=== PATIENT | male | born 1990 | race Caucasian/White ===

== ENCOUNTER 2017-01-31 00:36 | Observation (INO) ==
[2017-01-31 01:18] LABS: MANUAL DIFF NEEDED? NO; URINE CULTURE NEEDED? NO; URINE MICRO REVIEW NEEDED? NO; URINE SOURCE CLEAN CATCH
[2017-01-31 01:22] LABS: BASO% 0.2 % (0.0-0.8); HEMATOCRIT 43.4 % (42.0-52.0); HEMOGLOBIN 15.7 g/dL (14.0-18.0); IMM GRAN# 0.02 X1000 (0.0-0.04); IMM GRAN% 0.2 % (0.0-0.5); LYMPH# 1.64 X1000 (1.2-3.4); LYMPH% 12.8 % (20.5-51.1); MCH 32.6 PG (27-31); MCHC 36.2 g/dL (33-37); MCV 90.2 FL (81-99); MONO# 0.28 X1000 (0.11-0.59); MONO% 2.2 % (1.7-9.3); MPV 10.5 FL (7.4-10.4); NEUT% 84.6 % (42.2-75.2); PLT 303 X1000 (130-400); RBC 4.81 XMIL (4.7-6.1)
[2017-01-31] MEDS ORDERED: PHENERGAN IM ONE (01:27)
[2017-01-31 01:46] LABS: AGAP 21; ALBUMIN 5.4 g/dL (3.5-5.0); ALKALINE PHOSPHATASE 75 U/L (32-122); AMYLASE 32 U/L (20-200); BUN 13 mg/dL (8-22); CALCIUM 10.2 mg/dL (8.8-10.2); CHLORIDE 103 mmol/L (98-107); COSMO 286; GOT 14 U/L (10-34); GPT 12 U/L (10-44); LIPASE 12 U/L (13-60); POTASSIUM 3.7 mmol/L (3.5-5.1); SODIUM 143 mmol/L (136-145); TCO2 19 mmol/L (25-35); TOTAL BILIRUBIN 1.74 mg/dL (0.20-1.00); TOTAL PROTEIN 8.3 g/dL (6.3-8.3)
[2017-01-31 01:48] LABS: URINE RBC <10 /HPF (<10); URINE WBC <10 /HPF (<10)
[2017-01-31] MEDS ORDERED: SODIUM CHLORIDE 0.9% INJ ONE ×2 (01:48→04:02)
[2017-01-31] MEDS ORDERED: PHENERGAN IV ONE (01:48)
[2017-01-31 01:49] LABS: BILIRUBIN URINE NEGATIVE (NEGATIVE); BLOOD URINE NEGATIVE (NEGATIVE); COLOR YELLOW; GLUCOSE URINE NEGATIVE (NEGATIVE); LEUKOCYTES URINE NEGATIVE (NEGATIVE); NITRITE URINE NEGATIVE (NEGATIVE); PROTEIN URINE 100 mg/dL (NEGATIVE); SP GRAVITY URINE 1.025; TURBIDITY URINE CLEAR (CLEAR); UR EPITHELIAL CELLS <10 /HPF (<10); URINE BACTERIA NEGATIVE /HPF; UROBILINOGEN URINE 2 mg/dL (NORMAL)
--- NOTE | 2017-01-31 01:49 | PROVIDER DOCUMENTATION ---
This chart was entered by Alan Pinedo Scribe, acting as scribe for Swapnil Michael PA. HPI-Abdominal Pain/GI Problem - General Source: patient - History of Present Illness-ABD Nature of Presenting Problems: Pt is a 26 yom who presents to ER with CC of hematemesis and N/D that started yesterday am. Pt states that he was vomiting every 5 minutes starting when he woke up, and has had 2 episodes of loose/watery diarrhea. Pt denies any sick contacts or recent travel. Pt reports that he was not going to come to ER originally until his noticed hematemesis in the garbage can that pt was vomiting in to. Abdominal Pain Onset Location: reports: periumbilical Pain Radiation: reports: no radiation Quality of Pain: reports: aching, cramping Severity in ED: reports: moderate Onset/Duration: reports: this morning (01/30/2017 am) Timing: reports: still present Associated Symptoms: reports: diaphoresis, diarrhea, fatigue, fever/chills, muscle aches, nausea, shortness of breath (Pt reports difficulty breathing after vomiting), vomiting, weakness, trouble walking. denies: anxiety, arm pain , back/neck pain, chest pain, constipation, dizziness, EENT symptoms, genitourinary problems, headaches, heartburn, joint pain Last BM: last night Dark Stools Present?: reports: none noticed Rectal Bleeding: reports: none Rectal Pain: reports: none Emesis Description: reports: blood-streaked <Swapnil Michael - Last Filed: 01/31/17 10:12> <Pro Stock - Last Filed: 02/01/17 01:43> - General Chief Complaint: Vomiting Stated Complaint: throwing up blood Time Seen by Provider: 01/31/17 01:15 Allergies/Adverse Reactions: Patient Allergies Allergy/AdvReac Type Severity Reaction Status Date / Time No Known Allergies Allergy Verified 01/31/17 01:02 Home Medications: Home Medication List Medication Instructions Recorded Confirmed Last Taken Type Pantoprazole [Protonix] 40 mg PO BID #60 tablet 01/31/17 Unknown Rx Review of Systems - Adult - REVIEW OF SYSTEMS - ADULT Constitutional: reports: chills, fatique. denies: fever, night sweats, weight gain, weight loss Eyes: reports: no symptoms reported Ears, Nose, Mouth & Throat: reports: no symptoms reported Cardiovascular: reports: no symptoms reported Respiratory: reports: dyspnea on exertion (after vomiting). denies: chronic cough, cough, excessive sputum production, hemoptysis, pleurisy, shortness of breath, wheezing Gastrointestinal: reports: abdominal pain, hematemesis, diarrhea, difficulty swallowing (unable to retain solids/liquids), nausea, poor appetite, vomiting. denies: constipation, frequent heartburn, rectal bleeding Genitourinary: denies: dysuria, discharge, flank pain, frequent UTI's, hematuria Musculoskeletal: reports: no symptoms reported Integumentary: reports: no symptoms reported Neurological: reports: no symptoms reported Psychiatric: reports: no symptoms reported Endocrine: reports: no symptoms reported Hematologic/Lymphatic: reports: no symptoms reported Allergic/Immunologic: reports: no symptoms reported All Other Systems: Reviewed and Negative <Swapnil Michael - Last Filed: 01/31/17 10:12> - REVIEW OF SYSTEMS - ADULT Constitutional: reports: see HPI <Pro Stock - Last Filed: 02/01/17 01:43> Past History - Adult - PAST MEDICAL HISTORY-ADULT Review of Records: reports: Old Records Reviewed, Nursing Assessment Review, Medications Reviewed, Social history reviewed & non-contributory. - IMMUNIZATION STATUS Childhood Immunizations: See Nurse Assessment Flu Vaccine: See Nurse Assessment <Swapnil Michael - Last Filed: 01/31/17 10:12> - PAST MEDICAL HISTORY-ADULT Review of Records: reports: Old Records Reviewed, Nursing Assessment Review, Medications Reviewed, Social history reviewed & non-contributory. Major Childhood Illnesses: reports: denies history <Pro Sotck - Last Filed: 02/01/17 01:43> Physical Exam-General - PHYSICAL EXAM-ADULT Initial Vital Signs Reviewed: Yes - CONSTITUTIONAL General Appearance: appears well, alert, mild distress, lethargic - EYES Eyes: PERRL/EOMI, pink conjunctivae - HEAD, EARS, NOSE, MOUTH & THROAT HENMT: normocephalic/atraumatic, moist mucous membranes, normal ENT inspection, TMs normal, pharynx normal. negative: pharyngeal erythema, tonsillar exudate, TM abnormal - NECK Neck: non-tender, full range of motion, supple, normal inspection. negative: C- spine tenderness, limited range of motion, lymphadenopathy - RESPIRATORY Respiratory: chest non-tender, lungs clear, normal breath sounds, no pleuratic chest pain, no respiratory distress, no accessory muscle use. negative: respiratory distress, decreased breath sounds, accessory muscle use, wheezing - CARDIOVASCULAR Cardiovascular: normal peripheral pulses, regular rate, rhythm. negative: bradycardia, tachycardia, irregularly irregular - GASTROINTESTINAL (ABDOMEN) Abdominal Exam: normal bowel sounds, no organomegaly, no pulsatile mass, guarding, tenderness (RU/LQ). negative: non tender, soft, McBurney's point tenderness, Kumar's sign - MUSCULOSKELETAL Back Exam: normal inspection, no CVA tenderness, no vertebral tenderness. negative: CVA tenderness, vertebral tenderness Extremity: normal range of motion, non-tender, normal gait, normal inspection, no pedal edema, no calf tenderness, normal capillary refill. negative: deformity, erythema, inflammation, swelling, tenderness - SKIN Integumentary: normal color, normal turgor, warm/dry. negative: abrasion(s), diaphoresis, ecchymosis, erythema, laceration(s), swelling, tenderness, warm - NEUROLOGIC Neurologic: drafting engineer II-XII nml as tested, grossly normal, no motor/sensory deficits . negative: facial droop, focal weakness, motor weakness, sensory deficit - PSYCHIATRIC Psych/Mental Status: normal thought content, normal thought process, oriented x 3, depressed affect. negative: normal mood/affect <Swapnil Michael - Last Filed: 01/31/17 10:12> - PHYSICAL EXAM-ADULT Initial Vital Signs Reviewed: Yes - CONSTITUTIONAL General Appearance: alert - HEAD, EARS, NOSE, MOUTH & THROAT HENMT: other <Pro Stock - Last Filed: 02/01/17 01:43> Progress - PLAN OF CARE/RESULTS Progress/Plan/Lab Results: Vital Signs - 8 hr 01/31/17 00:42 Temperature 97.8 F Pulse Rate 77 Respiratory Rate 24 Blood Pressure 114/67 O2 Sat by Pulse Oximetry 100 Laboratory Results - last 24 hr 01/31/17 01/31/17 01:00 01:00 WBC 12.80 H RBC 4.81 Hgb 15.7 Hct 43.4 MCV 90.2 MCH 32.6 H MCHC 36.2 RDW Std Deviation 12.0 Plt Count 303 MPV 10.5 H Immature Gran % (Auto) 0.2 Neut % (Auto) 84.6 H Lymph % (Auto) 12.8 L [place] % (Auto) 2.2 Eos % (Auto) 0.0 Baso % (Auto) 0.2 Immature Gran # (Auto) 0.02 Neut # (Auto) 10.84 H Lymph # (Auto) 1.64 [place] # (Auto) 0.28 Eos # (Auto) 0.00 Baso # (Auto) 0.02 Urine Source CLEAN CATCH Orders Category Date Time Status Saline Loc DIRECTED Care 01/31/17 01:11 Active NPO Diet 01/31/17 01:11 Active AMYLASE [CHEM] Stat Lab 01/31/17 01:00 Received CBC WITH ELECTRONIC DIFF [HEME] Stat Lab 01/31/17 01:00 Completed COMPREHENSIVE METABOLIC PANEL [CHEM] Stat Lab 01/31/17 01:00 Received LIPASE [CHEM] Stat Lab 01/31/17 01:00 Received URINALYSIS W/POSS RFLX CULT-1 [URINALYSIS] Stat Lab 01/31/17 01:00 Results Result Diagrams: 01/31/17 01:00 01/31/17 01:00 - CT/MRI 1 CT Study: Abdomen, Pelvis Impression: See EMR Report CT Results: Negative - CHANGE OF SHIFT REPORT (ED Provider) Report Given and Care Transferred to:: Dr. Stock Time of Transfer: 01:51 Items Pending: Labs, XRAY Results <Swapnil Michael - Last Filed: 01/31/17 10:12> - PLAN OF CARE/RESULTS Progress/Plan/Lab Results: Vital Signs - 8 hr 01/31/17 00:42 01/31/17 01:58 01/31/17 03:19 Temperature 97.8 F Pulse Rate 77 72 78 Pulse Rate [Sitting] 74 Pulse Rate [Standing] 102 H Pulse Rate [Supine] 77 Respiratory Rate 24 18 16 Blood Pressure 114/67 126/75 115/89 Blood Pressure [Sitting] 150/78 Blood Pressure [Standing] 115/89 Blood Pressure [Supine] 126/75 O2 Sat by Pulse Oximetry 100 99 96 Laboratory Results - last 24 hr 01/31/17 01/31/17 01/31/17 01:00 01:00 01:00 WBC 12.80 H RBC 4.81 Hgb 15.7 Hct 43.4 MCV 90.2 MCH 32.6 H MCHC 36.2 RDW Std Deviation 12.0 Plt Count 303 MPV 10.5 H Immature Gran % (Auto) 0.2 Neut % (Auto) 84.6 H Lymph % (Auto) 12.8 L [place] % (Auto) 2.2 Eos % (Auto) 0.0 Baso % (Auto) 0.2 Immature Gran # (Auto) 0.02 Neut # (Auto) 10.84 H Lymph # (Auto) 1.64 [place] # (Auto) 0.28 Eos # (Auto) 0.00 Baso # (Auto) 0.02 Sodium 143 Potassium 3.7 Chloride 103 Carbon Dioxide 19 L Anion Gap 21 BUN 13 Creatinine 1.0 Estimated GFR/1.73 m2 > 60 BUN/Creatinine Ratio 13 Glucose 114 H Calculated Osmolality 286 Calcium 10.2 Total Bilirubin 1.74 H AST 14 ALT 12 Alkaline Phosphatase 75 Total Protein 8.3 Albumin 5.4 H Globulin 2.9 Albumin/Globulin Ratio 1.9 Amylase 32 Lipase 12 L Urine Source CLEAN CATCH Urine Color YELLOW Urine Turbidity CLEAR Urine pH 7.0 Ur Specific [place] 1.025 Urine Protein 100 A Ur Glucose (Stick) NEGATIVE Ur Ketones (Stick) 80 A Urine Blood NEGATIVE Urine Nitrite NEGATIVE Urine Bilirubin NEGATIVE Urobilinogen Dipstick 2 A Urine Leukocytes NEGATIVE Urine WBC (Auto) <10 Urine RBC (Auto) <10 U Epithel Cells (Auto) <10 Urine Bacteria (Auto) NEGATIVE Orders Category Date Time Status ED: Orthostatic Vital Signs (E as directed Care 01/31/17 01:52 Active Orthostatic [Orthostatic Vital Signs] NOW Care 01/31/17 03:56 Active Saline Loc DIRECTED Care 01/31/17 01:11 Active NPO Diet 01/31/17 01:[address] ABD/PELVIS W/ IV CONT ONLY [CT] Stat Exams 01/31/17 02:17 Taken AMYLASE [CHEM] Stat Lab 01/31/17 01:00 Completed CBC WITH ELECTRONIC DIFF [HEME] Stat Lab 01/31/17 01:00 Completed COMPREHENSIVE METABOLIC PANEL [CHEM] Stat Lab 01/31/17 01:00 Completed LIPASE [CHEM] Stat Lab 01/31/17 01:00 Completed URINALYSIS W/POSS RFLX CULT-1 [URINALYSIS] Stat Lab 01/31/17 01:00 Completed 0.9% Sodium Chloride Inj [Ns] 2,000 ml Med 01/31/17 02:05 Discontinued .ROUTE As Directed 0.9% Sodium Chloride Inj [Ns] 2,000 ml Med 01/31/17 02:04 Active IV 999 mls/hr Famotidine [Pepcid] Med 01/31/17 04:02 Once 20 mg IV NOW ONE Ondansetron [Zofran] Med 01/31/17 02:28 Discontinued 4 mg IV NOW ONE Promethazine [Phenergan] Med 01/31/17 01:27 Discontinued 25 mg IM NOW ONE Promethazine [Phenergan] Med 01/31/17 01:48 Discontinued 25 mg IV NOW ONE Sodium Chloride 0.9% Med 01/31/17 01:48 Discontinued 10 ml INJ NOW ONE Sodium Chloride 0.9% Med 01/31/17 04:02 Once 5 - 10 ml INJ NOW ONE Result Diagrams: 01/31/17 16:30 01/31/17 01:00 - CONSULTS/PCP/HOSPITALIST Notification #1 *Consult/PCP/Hospitalist*: Dr. Arnold, hospitalist Time Discussed: 04:20 Consult Disposition: Will see in ED <Pro Stock - Last Filed: 02/01/17 01:43> Departure - Departure Time of Disposition Decision: 03:12 Certified Medical Emergency: Emergent - Critical Care Note This patient required my direct & personal management of CC.: No <Swapnil Michael - Last Filed: 01/31/17 10:12> - Departure Time of Disposition Decision: 04:10 Certified Medical Emergency: Emergent - Critical Care Note This patient required my direct & personal management of CC.: No <Pro Stock - Last Filed: 02/01/17 01:43> - Departure DIAGNOSIS: Orthostatic dizziness, Dehydration Intractable nausea and vomiting Qualifiers: Vomiting type: unspecified Qualified Code(s): R11.2 - Nausea with vomiting, unspecified Disposition: ADMITTED INPATIENT 09 Condition: Stable Attestation - Physician/ ERICK Attestation Patient care was provided by Advanced Practice Provider:: Yes Advanced Practice Provider documentation review:: The Mid-level provider documentation, treatment plan and medical decision making was reviewed by the physician who agrees with all treatment and medical decision making by the MLP. The physician spent face to face time with patient:: Yes Advanced Practice Provider documentation review:: The physician spent face to face time with this patient and agrees with all MLP documentation, treatment, and medical decision making by the MLP. See provider notes for further information. <Pro Stock - Last Filed: 02/01/17 01:43> This chart was documented by the indicated scribe, (Alan Pinedo Scribe) and accurately reflects the services I performed and decisions made by me, Swapnil Michael PA, as attested by the provider's signature.
[2017-01-31] MEDS ORDERED: NS 2,000 ML IV ONE (02:04)
[2017-01-31] MEDS ORDERED: NS 2,000 ML ONE (02:05)
[2017-01-31] MEDS ORDERED: ZOFRAN IV ONE (02:28)
[2017-01-31] MEDS ORDERED: PEPCID IV ONE (04:02)
[2017-01-31] MEDS ORDERED: PROTONIX 80 MG in NS 80 ML IV SCH (07:00)
[2017-01-31] MEDS ORDERED: NS 1,000 ML IV SCH (07:05)
[2017-01-31] MEDS ORDERED: ZOFRAN IV PRN (07:28)
[2017-01-31] MEDS ORDERED: SODIUM CHLORIDE 0.9% INJ PRN (07:28)
[2017-01-31] MEDS ORDERED: MBX SOLUTION MT PRN (07:28)
[2017-01-31] MEDS ORDERED: MORPHINE IV PRN (07:28)
[2017-01-31] MEDS ORDERED: SODIUM CHLORIDE 0.9% INJ SCH (07:28)
[2017-01-31] MEDS ORDERED: TYLENOL PO PRN (07:28)
[2017-01-31] MEDS ORDERED: NS 1,000 ML IV ONE (07:28)
[2017-01-31] MEDS ORDERED: PHENERGAN IV PRN (07:28)
--- NOTE | 2017-01-31 07:40 | Diag Imaging Result Doc PS360 ---
EXAM: CT ABD/PELVIS W/ IV CONT ONLY HISTORY: ABDOMINAL PAIN,N/V/D TECHNIQUE: CT of the abdomen with intravenous contrast and reduced dose (clarity.) COMMENT: There are no previous studies. The visualized portion of the chest is unremarkable. The liver spleen adrenal glands and pancreas are within normal limits. There are no apparent gallstones. The kidneys are without evidence of hydronephrosis or mass. There is no evidence of bowel obstruction significant adenopathy or appendicitis. CT of the pelvis with intravenous contrast: The urinary bladder is not distended. There is no evidence of free fluid. There is no evidence of significant adenopathy. There are no acute abnormalities in the visualized skeleton. IMPRESSION: no acute abnormality. Electronically signed by Oscar Victor 01/31/2017 7:38 AM
[2017-01-31 11:18] VITALS: BP 115/57
[2017-01-31 11:24] LABS: HEMATOCRIT 37.2 % (42.0-52.0); HEMOGLOBIN 13.1 g/dL (14.0-18.0)
--- NOTE | 2017-01-31 12:06 | HISTORY AND PHYSICAL ---
CHIEF COMPLAINT: Nausea and vomiting. HISTORY OF PRESENT ILLNESS: A 26-year-old male with no medical problems, who presents with intractable nausea, vomiting for the last 24 hours. Started around 10 p.m. last night. He had some hematemesis. He had protracted nausea, vomiting. He had a couple episodes of diarrhea but has not had that much. No other sick contacts. No abdominal pain per se but he does have a lot of irritation in his throat from the throwing up. He denies any NSAID use. He denies any GI history. Overall he is clinically improved. PAST MEDICAL HISTORY: Denies. PAST SURGICAL HISTORY: Denies. FAMILY HISTORY: Reviewed and noncontributory. SOCIAL HISTORY: Denies tobacco or ethanol. ALLERGIES: No known drug allergies. MEDICATIONS: Denies regular medications. REVIEW OF SYSTEMS: Otherwise negative times a 10 point review of systems. PHYSICAL EXAMINATION: VITAL SIGNS: Blood pressure 114/58, heart rate of 83, respiratory rate 18, temperature degrees 96% on room air, 97.8 temperature. GENERAL: A well-developed male, appears in no acute distress. HEAD: Normocephalic, atraumatic. EYES: Pupils equal, round, reactive to light. Extraocular movements were intact. EAR/NOSE/THROAT: Moist mucous membranes. NECK: Supple. CARDIOVASCULAR EXAM: Regular rate and rhythm. No murmurs, gallops, or rubs. PULMONARY: Bilateral breath sounds. Clear to auscultation. GI: Soft, nontender, nondistended. Bowel sounds are positive. EXTREMITIES: No clubbing or cyanosis. LYMPHATICS: No peripheral edema. NEUROLOGICAL: Nonfocal. MUSCULOSKELETAL: Was 5/5. LABORATORY DATA: A little bit of leukocytosis, 12.8. Total bilirubin up just a hair 1.74. Urine was really unremarkable. He had a CT scan which was read as completely normal. ASSESSMENT: 26-year-old male with a protracted nausea, vomiting, likely related to a gastroenteritis type episode however has subsequently developed upper GI bleed. 1. Upper gastrointestinal bleed. We will monitor with serial H and Hs. Will get a GI consult. Continue hydration and we will start Protonix drip. I think more than likely this is a Maria T-Burt tear. We will continue to follow. 2. Protracted nausea, vomiting. Again supportive measures, antiemetics, fluid, pain control. DISPOSITION: Pending his resolution of his issues hopefully within the next 24 hours. This is a service admission. cc: John Arnold MD
[2017-01-31 16:34] LABS: HEMATOCRIT 35.6 % (42.0-52.0); HEMOGLOBIN 12.3 g/dL (14.0-18.0)
--- NOTE | 2017-01-31 18:22 | CONSULTATION ---
DATE OF CONSULTATION: 01/31/2017 CONSULTING PHYSICIAN: Dr. Arnold. REASON FOR CONSULT: Hematemesis. HISTORY: This is a 26-year-old white male with no history of major medical problem, brought to the emergency room after he has had persistent nausea and vomiting almost all day yesterday with some blood in his emesis. He was admitted for further evaluation and treatment. Since admission he has done well. He has not had any further vomiting or hematemesis. He has not had any melena or bright red blood per rectum. He is hungry, he wants to eat, and he tells me that his symptoms have completely resolved. Patient tells me that he has history of reflux and he takes over-the- counter antacids, it helps him alleviate some of his GI symptoms. But he has never been diagnosed with peptic ulcer disease, has not had any formal diagnosis of gastroesophageal disease. He does not smoke and does not take any [id number] medications. Prior to his episode yesterday, his appetite has been good and he has been eating well. He has not eaten anything outside. He had some tenderloin that was cooked by his brother. He has not had any associated symptoms of fever or chills. He did feel cold, clammy when he was vomiting yesterday. He has not had any dizziness, double vision. Denies any cough, sputum, or hemoptysis. Has not had any dysuria, polyuria, or hematuria. PAST MEDICAL HISTORY: Nothing significant. SURGERY: None. MEDICATION: [id number] antacids. Otherwise none. ALLERGIES: No known drug allergies. SOCIAL HISTORY: He has 1 child. He claims he does not drink, does not use illicit drugs. FAMILY HISTORY: Noncontributory. REVIEW OF SYSTEMS: As per HPI above. PHYSICAL EXAMINATION: General Appearance: A very pleasant white male. He is sitting in the bed. He is conscious, alert, appears to be in no distress. Vital Signs: Temperature is 98 degrees Fahrenheit, pulse 72 per minute, breathing at 16, blood pressure was 115/57. He weighs 170 pounds. He is 5 feet 11 inches tall. HEENT: Head is atraumatic, normocephalic. Eyes: Conjunctivae normal. Sclerae anicteric. Nares are patent. No discharge. Mouth is moist. Throat is normal. Neck: Supple. No lymphadenopathy or thyromegaly. Chest: Bilaterally symmetrical, is moving with respirations. Breath sounds audible bilaterally. No rhonchi or crepitations could be heard. Heart: S1, S2 audible. No murmur could be appreciated. Abdomen: Flat, soft, nontender. No masses were noted. No ascites noted. Bowel sounds are audible. No pedal edema, cyanosis, clubbing was noted. HEALTH RECORD TECHNICIAN: Grossly intact. No sensory or motor deficit. DIAGNOSTIC DATA: Labs reviewed which showed WBC of 12.8, hemoglobin 13.1, hematocrit 37.2, MCV 90.2, platelets were 303,000. Sodium 143, potassium 3.7, chloride 103, bicarb 19, BUN is 13, creatinine 1.0, glucose 114, AST 14, ALT 12, with total bilirubin 1.74, albumin 5.4, amylase and lipase within normal range. He had some ketones in his urine, and no evidence of urinary tract infection. CT scan of the abdomen and pelvis done which was essentially negative. IMPRESSION: This is a 26-year-old gentleman who has presented with vomiting and small hematemesis. His hemoglobin and hematocrit has been fairly stable. He is not actively bleeding since admission. He is hemodynamically stable as well. His symptoms suggestive of toxic gastritis resulting in his symptoms. He may have had a Maria T-Burt tear with hematemesis. At this point, he is not having any symptoms. He is not actively bleeding. He is hemodynamically stable and there is no need for urgent endoscopy. However I agree with continue on proton pump inhibitor and strongly recommend him to avoid NSAID. He needs endoscopy, that can be done as an outpatient. I will give him a trial of liquid diet and advance as tolerated, continue PPI but switch it to p.o., and if he tolerates his diet well and does well, he can go home. He is very anxious and wants to leave now, but I would observe him after his food, and if he does well I can let him go and then advise him to follow up at the office for outpatient EGD. I have explained the findings and plan to the patient and his family members who were present at bedside. They understood and agreed. All the pertinent questions answered. Case was discussed with the nurse also. Thank you. cc: MD HAKAN CornellD
[2017-02-01] MEDS ORDERED: PRILOSEC PO SCH (07:00)
--- NOTE | 2017-02-07 16:02 | DISCHARGE SUMMARY ---
ADMISSION DATE: 01/31/2017 DISCHARGE DATE: 01/31/2017 FINAL DISCHARGE DIAGNOSES: 1. Nausea and vomiting. 2. Hematemesis. 3. Leukocytosis. 4. Anemia. CONSULTATIONS REQUESTED DURING HOSPITAL STAY: Gastroenterology consultation with Dr. Esparza. HOSPITAL COURSE: Mr. Sauceda is a 26-year-old male who presented to the ER with nausea, vomiting, and some hematemesis. The patient was admitted to the Hospitalist Service and started on IV Protonix, and Gastroenterology was consulted. While hospitalized, the patient had no further episodes of hematemesis, and his nausea and vomiting resolved, so it was recommended by Gastroenterology for the patient be started on a diet and to observe the patient. The patient did well after eating and had no further nausea or vomiting. It was recommended that the patient follow up as an outpatient for possible outpatient endoscopy. The patient was cleared for discharge home on 01/31/2017. DISCHARGE MEDICATION: Protonix 40 mg p.o. twice a day. DISCHARGE DIET: [place] diet. ACTIVITY: As tolerated. FOLLOWUP INSTRUCTIONS: The patient will need to follow up with Dr. Esparza in 1-2 weeks. cc: Adali Chinchilla MD
== END 2017-01-31 16:55 | disposition home or self-care (01) ==
LOC: 4N 00:36 → ED 00:36 → SUATTDRO 06:55
PROVIDERS: ATTEND Internal Medicine